=== PATIENT | female | born 1990 | race American Indian/Alaskan Native ===

== ENCOUNTER 2019-11-11 12:02 | Outpatient (CLI) | payer MEDICAID ==
[2019-11-11 12:22] VITALS: BP 102/56
--- NOTE | 2019-11-11 15:17 | Ultrasound Report ---
OB Ultrasound Biophysical profile HISTORY: c/o leaking. TECHNIQUE: Grayscale and color Doppler imaging performed. COMPARISON: None FINDINGS: There is a single viable intrauterine gestation which is cephalic in presentation. MU is 8 cm. Heart rate is 143 bpm. On biophysical profile, the fetus received a score of 2 out of 2 for MU, tone, breathing, and moveme nt. Total score was 8 out of 8. IMPRESSION: 1. Single viable intrauterine gestation as above. 2. Normal biophysical profile. Signer Name: Andre Arango MD Signed: 11/11/2019 3:13 PM Workstation Name: [id number]
== END 2019-11-11 15:48 | disposition home or self-care (01) ==
LOC: TRG 12:02
PROVIDERS: ATTEND Obstetrics & Gynecology
DX: O47.03 False labor before 37 completed weeks of gestation, third trimester (principal); Z3A.30 30 weeks gestation of pregnancy
CPT/HCPCS: 59025; 76815; 76819